=== PATIENT | male | born 1995 | race Caucasian/White ===

== ENCOUNTER 2021-07-29 12:48 | Emergency (ER) | payer OTHER ==
[~2021-07-29] VITALS: Ht 185.4 cm; Wt 104.3 kg
[2021-07-29] MEDS ORDERED: HYDROCODON-ACE1 EAC7 PO (14:06)
[2021-07-29] MEDS ORDERED: AMOX TR-K CLV1 EAC4 PO (14:06)
[2021-07-29 14:23] VITALS: BP 147/91
== END 2021-07-29 14:23 | disposition left against medical advice (07) ==
LOC: M.ERS 12:48
DX: S01.511A Laceration without foreign body of lip, initial encounter (principal); W54.0XXA Bitten by dog, initial encounter; Y93.89 Activity, other specified; Y92.89 Other specified places as the place of occurrence of the external cause; Y99.8 Other external cause status